=== PATIENT | male | born 1960 | race Caucasian/White ===

== ENCOUNTER 2023-09-01 06:50 | Day surgery (SDC) | payer MEDICARE, OTHER, SELFPAY ==
[2023-09-01 08:15] VITALS: BMI 45.2
[2023-09-01 08:20] VITALS: BP 148/94
[2023-09-01 08:32] LABS: Glucose - Point of Care 120 mg/dl (70-99)
[2023-09-01 08:43] VITALS: BMI 45.2
[2023-09-01 09:35] VITALS: BP 131/71
[2023-09-01 09:45] VITALS: BP 138/81
[2023-09-01 10:00] VITALS: BP 157/92
== END 2023-09-01 10:16 | disposition home or self-care (01) ==
LOC: SDS 06:50
PROVIDERS: ATTENDING PHYSICIAN Internal Medicine Gastroenterology
DX: Z13.810 Encounter for screening for upper gastrointestinal disorder (principal); R12 Heartburn; Z87.19 Personal history of other diseases of the digestive system
CPT/HCPCS: 43239; 88305; 82962